=== PATIENT | male | born 1950 | race Caucasian/White ===

== ENCOUNTER 2018-02-16 07:51 | Day surgery (SDC) | payer MEDICARE, OTHER ==
[2018-02-16] MEDS ORDERED: DIPRIVAN 200 MG/20 ML IV ONE (07:52)
[2018-02-16] MEDS ORDERED: Depo-Medrol 40 MG/ML IM ONE (07:52)
[2018-02-16] MEDS ORDERED: Marcaine 0.5% SDV 10 ML IJ ONE (07:52)
--- NOTE | 2018-02-16 10:31 | XRAY ---
Indication: Left SI injection. Intraoperative fluoroscopy was provided for 10 seconds. 2 digital spot images submitted for interpretation demonstrates posterior spinal needle tip projecting over the inferior left SI joint. Correlate with intraoperative findings/report.
--- NOTE | 2018-02-16 10:45 | XRAY ---
10 seconds fluoroscopy time in surgery for left S-I joint injection.
[2018-02-16] MEDS ORDERED: Lactated Ringers 1,000 ML IV ONE (14:45)
== END 2018-02-16 09:38 | disposition home or self-care (01) ==
LOC: SDC-PAIN 07:51
PROVIDERS: ATTEND Psychiatry & Neurology Pain Medicine
DX: M53.3 Sacrococcygeal disorders, not elsewhere classified (principal)
CPT/HCPCS: 27096; 72020; 77002; 82962; J1030; J2704; G0260

== ENCOUNTER 2018-04-04 10:20 | Day surgery (SDC) | payer MEDICARE, OTHER ==
--- NOTE | 2018-04-04 08:19 | HP ---
AMENDED REPORT: DATE OF SURGERY: 04/04/2018 HISTORY OF PRESENT ILLNESS: The patient is a 67 year-old who had some sausage and [place] toast prior to attack, had right upper quadrant pain. Ultrasound showed cholelithiasis. HIDA showed some chronic cholecystitis. Occasional nausea. No jaundice. No change in bowel movements. No prior abdominal surgery. He had symptomatic cholelithiasis, probable chronic cholecystitis. I feel he will benefit from cholecystectomy. PAST MEDICAL HISTORY: He has had some chronic hip and back pain. He denied any prior surgical procedure. He did have a colonoscopy in the past. PAST SURGICAL HISTORY: MEDICATIONS: He has been on Atenolol for some hypertension. He has been on some omeprazole, metformin, Xanax, Vistaril, Tylenol, Cymbalta, Wellbutrin, aspirin. ALLERGIES: NORCO. FAMILY HISTORY: Diabetes, hypertension. SOCIAL HISTORY: No smoking. Alcohol abuse: Twelve beers per week. REVIEW OF SYSTEMS: Twelve systems reviewed. No chest pain or palpitations other systems negative or noncontributory as above and per preadmission questionnaire. PHYSICAL EXAMINATION: GENERAL: No acute distress. HEENT: Sclerae nonicteric. NECK: No JVD. CHEST: Equal excursion, nonlabored breathing. CVS: Regular rate and rhythm. ABDOMEN: Soft, mild tenderness right upper quadrant. No peritoneal signs. EXTREMITIES: No significant edema. NEURO: Alert, oriented, moving extremities symmetrically. No gross motor deficits noted. IMPRESSION: Symptomatic cholelithiasis, probable chronic cholecystitis. I feel the patient will benefit from cholecystectomy. Risks and benefits explained in detail including but not limited to bleeding or infection, risk of trocar injury or hernia, small risk of bowel, bladder or blood vessel injury, small risk of bile leak, bile duct injury, retained stone or sludge possibly requiring further procedure either open or ERCP, general risk of anesthesia, deep venous thrombosis, pulmonary embolism, pneumonia, perioperative risk of aches, pains, bloating, constipation and/or loose stools possibly chronic in nature. General risk anesthesia or sedation but not limited to, possibility the procedure may not improve his symptoms. He may need further work up and/or testing, endoscopy, other studies or procedures as well as possible need for open procedure. He understands all of the above but not limited to, will proceed with laparoscopic cholecystectomy with possible open as an outpatient.
[~2018-04-04 10:20] MED LIST: Lactated Ringers 1,000 ML IV ONE; Lactated Ringers 1,000 ML IV SCH; MEFOXIN 2 GM PREMIX** 2 GM/50 ML ML IV SCH; Sensorcaine 0.25% 10 ML ONE
[2018-04-04] MEDS ORDERED: Quelicin Fliptop 200 MG/10 ML IJ ONE (10:21)
[2018-04-04] MEDS ORDERED: Decadron 4 MG INJ IV ONE (10:21)
[2018-04-04] MEDS ORDERED: TORAdol 30 mg Injection IJ ONE (10:21)
[2018-04-04] MEDS ORDERED: DIPRIVAN 200 MG/20 ML IV ONE (10:21)
[2018-04-04] MEDS ORDERED: Zofran 4 MG/2 ML VIAL IV ONE (10:21)
[2018-04-04] MEDS ORDERED: SUBLIMAZE 100 MCG/2 ML IV ONE (10:21)
[2018-04-04] MEDS ORDERED: BRIDION 200MG/2ML IV ONE (10:21)
[2018-04-04] MEDS ORDERED: Zemuron 100 MG/10 ML IJ ONE (10:21)
[2018-04-04] MEDS ORDERED: MEFOXIN 2 GM PREMIX** 2 GM/50 ML ML IV ONE (10:32)
[2018-04-04] MEDS ORDERED: Lactated Ringers 1,000 ML IV ONE ×2 (10:33→13:37)
[2018-04-04] MEDS ORDERED: SUBLIMAZE 100 MCG/2 ML ONE (14:33)
--- NOTE | 2018-04-04 15:53 | OP ---
SURGERY DATE/TIME: 04/04/2018 1236 PREOPERATIVE DIAGNOSIS: Symptomatic cholelithiasis, chronic cholecystitis. POSTOPERATIVE DIAGNOSIS: Symptomatic cholelithiasis, severe chronic cholecystitis. PROCEDURE: Laparoscopic cholecystectomy. SURGEON: Dr. Venkata Figueredo. ANESTHESIA: General. ESTIMATED BLOOD LOSS: Minimal. INDICATIONS: As noted above. Risks and benefits explained in detail but not limited to and consent obtained. DESCRIPTION OF PROCEDURE AND FINDINGS: The patient was taken to the OR. He had a little bit of psoriasis around the umbilical area. He accepted the risk. He is at slight increased risk of incision infection. He desired to go ahead and proceed. Believe this will clear in the short term. Taken to the operating room. General anesthesia induced. Abdomen prepped and draped in the usual sterile fashion. After official time out and no disagreement with planned procedure, a transverse incision made at the supraumbilical area. Fascia grasped and pulled upward. Veress needle inserted and tested with saline. Pneumoperitoneum accomplished insufflating opening pressure of 0-15. An 11 mm bladeless port and camera inserted without difficulty followed by two - 5 mm right upper quadrant ports and 11 mm epigastric port later switched to 12 mm epigastric port. The gallbladder grasped retracted over the edge of the liver. The top part was quite intrahepatic. It had significant severe chronic inflammation. It took some time to mobilize the omentum off of it. Dissection carried posterior, lateral to anterior fashion. Due to inflammatory reaction in the Hollingsworth pouch/infundibular area this is slowly and carefully well skeletonized until the critical view obtained both anteriorly and posteriorly. He had more of a lateral artery at the lymph node, this was isolated directly on the gallbladder wall clipped x3 and divided. The infundibular Hollingsworth's pouch/cystic duct area was slowly and carefully skeletonized until critical view obtained both anteriorly and posteriorly. Given extensive inflammatory reaction it was felt he needed to be more secure with Endo stapler. EndoGIA stapler was fired across the base of infundibulum and cystic duct area. The gallbladder slowly and carefully dissected free from its almost concrete reaction to the liver bed, staying directly on the gallbladder wall. It was quite weepy and had small amount of bile, a little bit of sludge spill this was suction irrigated as well as possible. Slowly and carefully staying directly on the gallbladder basically had to carve the gallbladder off the chronic concrete inflammatory reaction staying directly on the gallbladder wall. Gallbladder released from final attachments to anterior edge of the liver. Staple line intact cystic duct stump. Cystic artery stump clips are in place as well as additional side branches of cystic artery had been clipped on gallbladder wall. No signs of any active bleeding from the liver bed itself. It had been raw but appeared to have good hemostasis now. Gallbladder released from final attachments. Decompressed as well as possible considering small pinhole and placed in Pleatman sac, pulled up the epigastrium where it is slightly spread with a clamp and then pulled free. Port replaced. Copious amount of irrigation accomplished lateral to the liver and subhepatic space irrigating until clear. SHANE drain placed subhepatic space out through a lateral portion incision secured with PDS suture and placed to bulb suction. Fascial defect in the epigastrium that had been slightly enlarged closed with figure-of-8 puncture closure device with #1 Vicryl. The 10/11 port was closed with puncture closure device with #1 Vicryl through supraumbilical area. Pneumoperitoneum decompressed. The wound was irrigated out. Skin incision closed with 4-0 Vicryl. Steri-Strips and sterile dressing applied. 0.25% Marcaine local injected along the skin incision fascial defect. The patient tolerated the procedure well. There were no immediate complications. Findings discussed with the family out in the waiting area. I will see him back in the office next week to take the drain out.
[2018-04-04 16:50] VITALS: BP 175/95; PULSE 73; O2SAT 98
== END 2018-04-04 16:30 | disposition home or self-care (01) ==
LOC: SDC 10:20
PROVIDERS: ATTEND Surgery
DX: K80.10 Calculus of gallbladder with chronic cholecystitis without obstruction (principal); E11.9 Type 2 diabetes mellitus without complications; I10 Essential (primary) hypertension
CPT/HCPCS: 82962; 88304; J0330; J0694; J1100; J1885; J2405; J2704; J3010